=== PATIENT | male | born 2000 | race Hispanic/Latino ===

== ENCOUNTER → 2023-02-16 | Outpatient (CLI) | payer BC ==
[2023-02-16 11:51] LABS: HEMOGLOBIN 14.7 g/dL (14.0-18.0)
[2023-02-16 12:24] LABS: INR 1.04; PROTHROMBIN TIME 14.1 seconds (11.9-14.5)
[2023-02-16 15:24] LABS: APPEARANCE,CSF CLEAR (CLEAR); COLOR,CSF COLORLESS (COLORLESS); TUBE NUMBER 3; WHITE BLOOD CELL,CSF 3 cells/uL (0-5)
== END ==
LOC: DX 11:29
PROVIDERS: ATTEND Internal Medicine Infectious Disease
DX: A53.9 Syphilis, unspecified (principal)
CPT/HCPCS: 36415; 62328; 82945; 84157; 85014; 85049; 85610; 85730; 86592; 89051